=== PATIENT | female | born 1975 | race Caucasian/White ===

== ENCOUNTER 2016-09-06 12:30 | Outpatient (CLI) | payer OTHER | END 2016-09-06 12:31 | disposition home or self-care (01) | DX: M77.31 Calcaneal spur, right foot (principal) ==

== ENCOUNTER 2017-06-06 09:15 | Outpatient (CLI) | payer OTHER | END 2017-06-06 09:16 | disposition home or self-care (01) | LOC: SC 09:15 | PROVIDERS: ATTEND Internal Medicine Pulmonary Disease | DX: G47.30 Sleep apnea, unspecified (principal); G47.8 Other sleep disorders; G47.10 Hypersomnia, unspecified; R06.83 Snoring | CPT/HCPCS: 99203; 99212 ==

== ENCOUNTER 2017-09-18 19:18 | Outpatient (CLI) | payer OTHER | END 2017-09-18 19:19 | disposition home or self-care (01) | LOC: SC 19:18 | PROVIDERS: ATTEND Internal Medicine Pulmonary Disease | DX: G47.33 Obstructive sleep apnea (adult) (pediatric) (principal) | CPT/HCPCS: 95810 ==

== ENCOUNTER 2017-12-04 08:40 | Outpatient (CLI) | payer OTHER | END 2017-12-04 08:41 | disposition home or self-care (01) | LOC: SC 08:40 | PROVIDERS: ATTEND Nurse Practitioner Family | DX: G47.33 Obstructive sleep apnea (adult) (pediatric) (principal) | CPT/HCPCS: 99212; 99214 ==

== ENCOUNTER 2018-02-21 10:32 | Outpatient (CLI) | payer OTHER | END 2018-02-21 10:33 | disposition home or self-care (01) | LOC: SC 10:32 | PROVIDERS: ATTEND Nurse Practitioner Family | DX: G47.33 Obstructive sleep apnea (adult) (pediatric) (principal) | CPT/HCPCS: 99212; 99214 ==

== ENCOUNTER 2018-05-29 11:52 | Outpatient (CLI) | payer OTHER ==
--- NOTE | 2018-05-29 14:06 | MRI Report ---
Reason: PAIN IN RIGHT HIP Procedure Date: 05/29/2018 Accession Number: [id number] / [id number] Procedure: MRI - Hip RT W/O CPT Code: FULL RESULT: EXAM: RIGHT HIP MRI WITHOUT CONTRAST EXAM DATE: 05/29/2018 12:43 PM. CLINICAL HISTORY: PAIN IN RIGHT HIP. COMPARISON: ABDOMEN/PELVIS W/ 08/29/2014 10:02 PM. TECHNIQUE: Multiplanar, multisequence T1-weighted and fluid-sensitive, small hipqt-su-tzuo sequences of the hip and large iqspr-hh-ccgu sequences of the pelvis without contrast. Other: None. FINDINGS: Bones: No fractures or subluxations. No marrow edema or bone lesions. Right/left Hip: No acetabular retroversion. Femoral head/neck offset is within normal limits. No effusion or loose bodies. The articular cartilage is intact. The labrum is unremarkable on this nonarthrographic study. The ligamentum teres is intact. Other Joints: The visualized lumbar spine, sacroiliac joints, symphysis pubis, and contralateral hip are unremarkable. Musculature: No edema or fatty atrophy. The gluteus medius and minimus tendons are normal. The visualized hamstring tendons are normal. The ischiofemoral space is normal. Pelvic Cavity: The visualized viscera are unremarkable. No lymphadenopathy. No free fluid in the pelvis. Other: The visualized sciatic nerves are unremarkable. No bursitis. The subcutaneous tissues are unremarkable. IMPRESSION: No MRI abnormalities in the hip and visualized pelvis. [facility] MUSCULOSKELETAL RADIOLOGY SECTION
== END 2018-05-29 11:53 | disposition home or self-care (01) ==
LOC: DI 11:52
PROVIDERS: ATTEND General Practice
DX: M25.551 Pain in right hip (principal)

== ENCOUNTER 2018-09-24 03:03 | Emergency (ER) | payer OTHER ==
[2018-09-24] MEDS ORDERED: SODIUM CHLORIDE 0.9% 1,000 ML IV ONE ×2 (03:20)
--- NOTE | 2018-09-24 03:22 | ED Physician Documentation ---
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 Patient has been taking ibuprofen and Tylenol at home to help control fever. Patient also admits to nausea without vomiting, but gagging. Patient denies abdominal pain, urinary changes, or stool changes. Patient is currently on her menstrual period.No other improving or worsening factors noted. 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 - Present Medications Home Medications: Ambulatory Orders Medication Instructions Recorded Confirmed Insulin Glargine,Hum.rec.anlog 80 unit SQ HS 01/18/13 07/19/15 [Lantus] metFORMIN [Glucophage] 500 mg PO BID 12/07/14 07/19/15 Aspirin [Aspir-Low] 81 mg ORAL DAILY 07/19/15 07/19/15 Atorvastatin [Lipitor] 10 mg ORAL DAILY 07/19/15 07/19/15 Phenazopyridine [Pyridium] 100 mg PO Q8H PRN #9 tablet 07/19/15 - Allergies Allergies/Adverse Reactions: Allergies Allergy/AdvReac Type Severity Reaction Status Date / Time No Known Drug Allergies Allergy Verified 07/19/15 07:34 - Social History Does the pt smoke?: No Smoking Status: Never smoker Does the pt drink ETOH?: No Does the pt have substance abuse?: No - Immunizations Immunizations are current?: Yes - POLST Patient has POLST: No PD ED PE NORMAL - Vitals Vital signs reviewed: Yes (Tachycardic) - General General: Alert and oriented X 3, No acute distress, Well developed/nourished - HEENT HEENT: Atraumatic, Moist mucous membranes, Pharynx benign - Cardiac Cardiac: No murmur. No: RRR (Tachycardic) - Respiratory Respiratory: No respiratory distress, Clear bilaterally - Abdomen Abdomen: Normal bowel sounds, Soft, Non tender, Non distended - Derm Derm: Normal color, Warm and dry, No rash - Extremities Extremities: No deformity, No tenderness to palpate, No edema - Neuro Neuro: Alert and oriented X 3, No motor deficit, No sensory deficit - Psych Psych: Normal mood, Normal affect Results - Vitals Vitals: Vital Signs - 24 hr 09/24/18 09/24/18 09/24/18 03:08 03:48 04:24 Temperature 37.1 C Heart Rate 153 H 110 H 92 Respiratory 20 17 Rate Blood Pressure 158/91 H O2 Saturation 98 97 09/24/18 04:39 Temperature Heart Rate 85 Respiratory 16 Rate Blood Pressure O2 Saturation 96 Oxygen O2 Source Room air - Labs Labs: Laboratory Tests 09/24/18 09/24/18 09/24/18 03:20 03:20 03:20 WBC 6.7 RBC 5.52 H Hgb 13.2 Hct 41.0 MCV 74.3 L MCH 23.9 L MCHC 32.2 RDW 14.8 Plt Count 246 MPV 7.7 L Neut # (Auto) 5.4 Lymph # (Auto) 0.4 L [place] # (Auto) 0.8 Eos # (Auto) 0.0 Baso # (Auto) 0.0 Absolute Nucleated RBC 0.00 Nucleated RBC % 0.0 Sodium 136 Potassium 3.6 Chloride 100 L Carbon Dioxide 24 Anion Gap 12.0 BUN 12 Creatinine 0.8 Estimated GFR (MDRD) 79 L Glucose 269 H Lactic Acid 1.0 Calcium 9.1 Total Bilirubin 0.7 AST 22 ALT 27 Alkaline Phosphatase 99 Total Protein 7.9 Albumin 4.0 Globulin 3.9 Albumin/Globulin Ratio 1.0 Lipase 24 Urine Color Urine Clarity Urine pH Ur Specific [place] Urine Protein Urine Glucose (UA) Urine Ketones Urine Occult Blood Urine Nitrite Urine Bilirubin Urine Urobilinogen Ur Leukocyte Esterase Urine RBC Urine WBC Ur Squamous Epith Cells Amorphous Sediment Urine Bacteria Ur Microscopic Review Urine Culture Comments Urine HCG, Qual 09/24/18 04:15 WBC RBC Hgb Hct MCV MCH MCHC RDW Plt Count MPV Neut # (Auto) Lymph # (Auto) [place] # (Auto) Eos # (Auto) Baso # (Auto) Absolute Nucleated RBC Nucleated RBC % Sodium Potassium Chloride Carbon Dioxide Anion Gap BUN Creatinine Estimated GFR (MDRD) Glucose Lactic Acid Calcium Total Bilirubin AST ALT Alkaline Phosphatase Total Protein Albumin Globulin Albumin/Globulin Ratio Lipase Urine Color YELLOW Urine Clarity CLEAR Urine pH 5.5 Ur Specific [place] >=1.030 H Urine Protein 30 H Urine Glucose (UA) 500 H Urine Ketones TRACE Urine Occult Blood NEGATIVE Urine Nitrite NEGATIVE Urine Bilirubin NEGATIVE Urine Urobilinogen 0.2 (NORMAL) Ur Leukocyte Esterase NEGATIVE Urine RBC 0-5 Urine WBC 0-3 Ur Squamous Epith Cells NONE SEEN Amorphous Sediment Moderate Urine Bacteria Rare Ur Microscopic Review INDICATED Urine Culture Comments NOT INDICATED Urine HCG, Qual NEGATIVE PD MEDICAL DECISION MAKING - ED course Complexity details: reviewed results, re-evaluated patient, considered differential, d/w patient ED course: Patient presenting with fever, chills, productive cough, generalized body aches over the past several days. Unfortunately, patient has been exposed to multiple sick patients in the hospital and obtained a chest x-ray. However, for pneumonia given constellation of symptoms x-ray returned unremarkable for pneumonia or other acute pathology. Patient started on IV fluids and received Tylenol for headache while obtaining further work-up including blood work, lactate, blood cultures, urinalysis and urine culture. Blood work also returned relatively unremarkable except for elevated blood glucose which is expected given her known diabetes and lack of medications for such earlier today. No significant leukocytosis, electrolyte abnormality, or other acute issue noted. Urinalysis also do not reflect infection or other problems except for presence of glucose which is expected as stated above. Based on physical exam and complaints, have low suspicion for meningitis. Also have lower suspicion for other intra-abdominal pathology such as appendicitis, gallbladder disease, renal disease, small bowel obstruction, diverticulitis as source of symptoms do not feel patient requires emergent CT imaging at this time. Feel that she is likely experiencing a viral illness. Patient is already outside of the treatment window for Tamiflu. Patient's tachycardia resolved with administration of IV fluids. Patient also remained afebrile in the ED. Advised her of results and recommendations including supportive cares, return precautions, and appropriate follow-up. Patient voiced understanding and is comfortable with discharge plan. Departure - Departure Disposition: 01 Home, Self Care Clinical Impression: Viral illness Fever Qualifiers: Fever type: unspecified Qualified Code(s): R50.9 - Fever, unspecified Condition: Good Instructions: ED Viral Syndrome, ED Fever Control Follow-Up: DERICK STEWART MD [Primary Care Provider] - Within 3 Days Comments: Please continue all home medications as previously instructed. Recommend alternating use of ibuprofen/Tylenol for pain and fever control. Recommend hydration with Powerade/Gatorade and advancing diet as tolerated. Please follow-up with primary care physician in the next 2 to 3 days and return to ED sooner if experience worsening symptoms or other concerns.
[2018-09-24 03:36] LABS: BASOPHILS % (AUTO) 0.2 %; EOSINOPHILS % (AUTO) 0.5 %; HGB - HEMOGLOBIN 13.2 g/dL (12.0-16.0); LYMPHOCYTES # (AUTO) 0.4 10^3/uL (1.5-3.5); LYMPHOCYTES % (AUTO) 6.2 %; MEAN CORPUSCULAR HEMOGLOBIN 23.9 pg (27.0-31.0); MEAN CORPUSCULAR HGB CONC 32.2 g/dL (32.0-36.0); MEAN CORPUSCULAR VOLUME 74.3 fL (81.0-99.0); MEAN PLATELET VOLUME 7.7 fL (7.9-10.8); MONOCYTES # (AUTO) 0.8 10^3/uL (0.0-1.0); MONOCYTES % (AUTO) 12.2 %; NEUTROPHILS # (AUTO) 5.4 10^3/uL (1.5-6.6); NEUTROPHILS % (AUTO) 80.9 %; PLT - PLATELET COUNT 246 10^3/uL (130-450); RED BLOOD COUNT 5.52 10^6/uL (4.20-5.40); RED CELL DISTRIBUTION WIDTH 14.8 % (12.0-15.0); WHITE BLOOD COUNT 6.7 x10^3/uL (4.8-10.8)
[2018-09-24 03:48] LABS: BILIRUBIN,TOTAL 0.7 mg/dL (0.2-1.0); CALCIUM 9.1 mg/dL (8.5-10.3); CREATININE 0.8 mg/dL (0.4-1.0); TOTAL PROTEIN 7.9 g/dL (6.7-8.2)
--- NOTE | 2018-09-24 03:48 | XRAY Report ---
Reason: cough, fever, chills Procedure Date: 09/24/2018 Accession Number: [id number] / [id number] Procedure: XR - Chest 2 View X-Ray CPT Code: 76962 FULL RESULT: EXAM: CHEST RADIOGRAPHY EXAM DATE: 09/24/2018 03:31 AM. CLINICAL HISTORY: Cough, fever, chills. COMPARISON: CHEST 2 VIEW PA/LAT 01/18/2013 9:39 AM. TECHNIQUE: 2 views. FINDINGS: Lungs/Pleura: No focal opacities evident. No pleural effusion. No pneumothorax. Normal volumes. Mediastinum: Heart and mediastinal contours are unremarkable. Other: None. IMPRESSION: Stable negative 2-view chest radiography. [facility]
[2018-09-24 04:29] LABS: BILIRUBIN,URINE NEGATIVE (NEGATIVE); GLUCOSE, URINE (UA) 500 mg/dL (NEGATIVE); KETONES,URINE (UA) TRACE mg/dL (NEGATIVE); LEUKOCYTE ESTERASE, URINE NEGATIVE (NEGATIVE); NITRITE,URINE NEGATIVE (NEGATIVE); OCCULT BLOOD,URINE NEGATIVE (NEGATIVE); PH,URINE 5.5 PH (5.0-7.5); PROTEIN,URINE 30 mg/dL (NEGATIVE); UROBILINOGEN,URINE 0.2 (NORMAL) E.U./dL (NORMAL)
[2018-09-24 04:31] LABS: CLARITY,URINE CLEAR (CLEAR); HCG UR QUAL NEGATIVE
[2018-09-24 04:39] LABS: BACTERIA,URINE Rare /HPF (None Seen); RBC,URINE 0-5 /HPF (0-5); SQUAMOUS EPITHELIAL CELL,UR NONE SEEN (<= Few)
[2018-09-24 04:40] LABS: AMORPHOUS SEDIMENT,UR Moderate /LPF
[2018-09-24] MEDS ORDERED: ACETAMINOPHEN 325 MG TABLET PO STA (04:40)
[2018-09-24 05:25] VITALS: BP 117/69
== END 2018-09-24 05:26 | disposition home or self-care (01) ==
LOC: ED 03:03
DX: B34.9 Viral infection, unspecified (principal); R51 Headache; R00.0 Tachycardia, unspecified; E10.65 Type 1 diabetes mellitus with hyperglycemia; Z79.4 Long term (current) use of insulin; Z79.82 Long term (current) use of aspirin
CPT/HCPCS: 36415; 71046; 80053; 81001; 81025; 83605; 83690; 85025; 87040; 96360; 96361; 99283; A9270; 81003; 87086

== ENCOUNTER 2019-02-06 12:22 | Outpatient (CLI) | payer OTHER ==
[2019-02-06] MEDS ORDERED: BUFFERED LIDOCAINE 10 ML SYRINGE ONE (13:13)
[2019-02-06] MEDS ORDERED: IOTHALAMATE MEGLUMINE 50 ML VIAL ONE (13:14)
[2019-02-06] MEDS ORDERED: GADOPENTETATE DIMEGLUMINE 5 ML VIAL IVP ONE (13:14)
--- NOTE | 2019-02-06 16:05 | XRAY Report ---
Reason: PAIN IN RIGHT HIP Procedure Date: 02/06/2019 Accession Number: [id number] / [id number] Procedure: FL - Arthrogram Needle Placement CPT Code: FULL RESULT: EXAM: RIGHT HIP ARTHROGRAPHIC INJECTION WITH FLUOROSCOPIC GUIDANCE EXAM DATE: 02/06/2019 02:56 PM. CLINICAL HISTORY: PAIN IN RIGHT HIP. COMPARISON: None. TECHNIQUE: The risks, benefits, and alternatives of the procedure were discussed with the patient. All questions were answered. Written and verbal consent were obtained. The hip joint was marked under fluoroscopy and prepped and draped in a sterile manner. Local anesthesia was performed with 1% lidocaine. A 22-gauge needle was then inserted into the hip joint. 10 mL of a solution containing 25% 1% lidocaine, 25% iodinated contrast, and a 1:200 dilution of gadolinium contrast in sterile saline was then injected. The needle was removed without immediate complication. Other: None. Fluoroscopy Time: 0.29 minutes. Number of Images: 1. FINDINGS: Bones and Joints: No fracture or subluxation. Injection: Fluoroscopic images demonstrate needle placement and contrast in the hip joint. IMPRESSION: Successful fluoroscopically guided arthrographic injection of the hip. [facility]
--- NOTE | 2019-02-06 17:30 | MRI Report ---
Reason: PAIN IN RIGHT HIP Procedure Date: 02/06/2019 Accession Number: [id number] / [id number] Procedure: MRI - Arthrogram Hip RT CPT Code: FULL RESULT: EXAM: RIGHT HIP MRI ARTHROGRAM WITH CONTRAST EXAM DATE: 02/06/2019 03:03 PM. CLINICAL HISTORY: PAIN IN RIGHT HIP. COMPARISON: Right hip MRI performed 05/29/2018 HIP RT W/O 05/29/2018 12:09 PM. TECHNIQUE: Multiplanar, multisequence T1-weighted and fluid-sensitive, small hdnbr-tv-obuh sequences of the hip and large gsksi-vj-hvbb sequences of the pelvis after an arthrographic injection of dilute gadolinium, dictated under a separate exam. Other: None. FINDINGS: Bones: No fractures or subluxations. No marrow edema or bone lesions. Right Hip: No acetabular retroversion. Femoral head/neck offset is within normal limits. No loose bodies. The articular cartilage is intact. There is a shallow smoothly marginated cleft along the articular surface of the labral-cartilaginous junction involving a short segment of the anterior-superior labrum best seen on the sagittal images on series 701 images 10 and 11. This extends between the labral tissue and cartilage and not deeper between the labral tissue and bone. This is probably a small normal variant sulcus. Partial labral detachment is possible but less likely. The remainder of the labrum is normal. The ligamentum teres is intact. Other Joints: The visualized lumbar spine, sacroiliac joints, symphysis pubis, and contralateral hip are unremarkable. Musculature: No edema or fatty atrophy. There is minimal edema about the distal gluteus medius tendons bilaterally consistent with mild peritendinitis, unchanged. No gluteus medius tendon tear. The gluteus minimus tendons are normal bilaterally. The visualized hamstring tendons are normal. There is trace edema in the left quadratus femoris muscle in the ischiofemoral interval raising the question of minimal left ischiofemoral impingement. This is unchanged. No similar finding is present on the right. Pelvic Cavity: The visualized viscera are unremarkable. No lymphadenopathy. No free fluid in the pelvis. Other: The visualized sciatic nerves are unremarkable. No bursitis. The subcutaneous tissues are unremarkable. IMPRESSION: 1. Tiny shallow cleft at the labral-cartilaginous junction of the anterior-superior aspect of the left hip labrum extends only between the labral tissue and underlying cartilage and not deeper between the labral tissue and bone. This is probably a normal variant sulcus with a short segment of labral detachment possible but less likely. The right hip joint is otherwise normal. No chondral or osseous abnormality. No stigmata of femoroacetabular impingement. 2. Mild edema about the distal gluteus medius tendons bilaterally, slightly more pronounced on the right, suggesting mild peritendinitis. No associated gluteus medius tendon tear. The adjacent gluteus minimus tendons are normal bilaterally. This is unchanged. 3. Minimal edema in the left quadratus femoris muscle in the ischiofemoral interval suggesting minimal ischiofemoral impingement, unchanged. No similar finding is present on the right. [facility]
[2019-02-07] MEDS ORDERED: BUFFERED LIDOCAINE 10 ML SYRINGE IU ONE ×2 (10:28)
[2019-02-07] MEDS ORDERED: GADOPENTETATE DIMEGLUMINE 5 ML VIAL IVP ONE (10:28)
[2019-02-07] MEDS ORDERED: IOTHALAMATE MEGLUMINE 50 ML VIAL IVP ONE (10:28)
== END 2019-02-06 12:23 | disposition home or self-care (01) ==
LOC: DI 12:22
PROVIDERS: ATTEND Internal Medicine
DX: M25.551 Pain in right hip (principal); R60.0 Localized edema
CPT/HCPCS: 27093; 73722; 77002; Q9961

== ENCOUNTER 2019-04-09 10:28 | Outpatient (CLI) | payer OTHER ==
--- NOTE | 2019-04-09 11:58 | Mammography Report ---
Reason: RT BREAST LUMP Procedure Date: 04/09/2019 Accession Number: [id number] / [id number] Procedure: BAL[facility]ER - Diagnostic Dig Bilat CPT Code: Final Report FULL RESULT: EXAM: Diagnostic Dig Bilat DATE: 04/09/2019 11:04 AM CLINICAL HISTORY: Diagnostic examination. Palpable lump. TECHNIQUE: (B) - Bilateral CC and MLO views were obtained. Right spot CC and right spot MLO as well as right ML images are obtained. COMPARISON: 09/19/2017. PARENCHYMAL PATTERN: (F) - The breast(s) demonstrate(s) diffuse fatty replacement. FINDINGS: No abnormality is seen in the area identified the marker. There are no suspicious masses, calcifications, or areas of distortion. IMPRESSION: Negative examination. BI-RADS category 1. RECOMMENDATION: (ANNUAL) - Recommend routine annual screening mammography. BI-RADS CATEGORY: (1) - Negative. STANDARD QUALIFYING STATEMENTS: 1. This examination was not reviewed with the aid of Computer-Aided Detection (CAD). 2. A negative or benign imaging report should not preclude biopsy if clinically suspicious findings are present. 3. Dense breasts may obscure an underlying neoplasm. 4. This examination was reviewed without the aid of 3D breast imaging (tomosynthesis).
== END 2019-04-09 10:29 | disposition home or self-care (01) ==
LOC: DI 10:28
PROVIDERS: ATTEND Internal Medicine
DX: N63.10 Unspecified lump in the right breast, unspecified quadrant (principal)
CPT/HCPCS: 77066

== ENCOUNTER 2019-06-11 08:48 | Outpatient (CLI) | payer OTHER ==
[2019-06-11 10:13] VITALS: BP 130/68
--- NOTE | 2019-06-11 10:13 | SLEEP CARE CONSULTATION ---
Information from patient questionnaire entered by Moriah Ralph. I have reviewed and concur with the information entered by Moriah Ralph. This document represents the service I personally performed and the decisions made by me, Radha Burroughs, RN, MSN, ENGLISH COMPOSITION TEACHER. History of Present Illness Previous diagnosis: Mild (having difficulty getting supplies despite repeated supplies, no return calls ), Obstructive Sleep Apnea-Hypopnea Syndrome AHI: 5.1 Reason for follow up: annual Equipment type: CPAP Equipment obtained from: [facility] Mask style: Full face (Air Touch - however it has broken down and unable to use so using old spare of uncomfortable mask) Mask brand: Resmed Backup mask available: Yes (old spare ) Last cushion change: a couple of years Prior sleep studies: Yes Year and Where: 2017 [facility] CPAP Compliance Data - Data Reviewed with Patient Average duration of nightly device use: 7h 58m Compliance rate %: 95.6 Current pressure setting (cmH2O): 4-7 Average residual AHI: 1.5 Average large leak: 52s Subjective Patient concerns: reports: mask discomfort (from old mask - tightened for mask leaks, prefers Air touch mask ). denies: aerophagia, air blowing in eyes, mask leak noise, condensation in mask/hose, nasal congestion, dry mouth, nose, throat (uses water in reservoir but does not heat plate, has stopped drooling with use of pass over humidity ), epistaxis Observed to snore while using device: Yes Current pressure setting perceived as: comfortable On therapy, patient: reports: sleeping better, more rested overall (with new mask last visit but now always feels tired. 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 Obstructive Sleep Apnea-Hypopnea Syndrome, mild but severe supine, with good treatment compliance and good apnea control. On CPAP therapy, the patient has better sleep quality and is more rested overall but has persistent fatigue addressed below. To reduce snore, I will increase autoCPAP ranged to 7-9cmH20. She is to contact me if the pressure change does not resolve snoring or if uncomfortable. For patient supply concerns. Patient was notified that another DME can be used. I will have my resident service coordinator inform of DME options. A DWO prescription will then be made. Patient advised to contact this office if further supply problems. Patient's apnea severity and rationale for treatment to reduce apnea, improve sleep quality and reduce cardiovascular and cerebrovascular events was reviewed. I also reviewed the benefit of consistent device use of CPAP for diabetes. 2. Chronic fatigue that could be due to trying to switch sleep schedule back and forth from nights to days to meet family needs on days off. She has had work up by PCP to rule out other cause.She obtained the coping with shift work pamphlet at last visit. She implements the sound barriers mentioned to assist her day sleep She was counseled to consider finding a day shift that would allow her to keep the same sleep schedule all days with rationale explained. She was also advised to discuss her fatigue at her upcoming appointment with her endocrinologists. * * Change CPAP pressure to 7-9 cmH2O * Transfer to new DME Notify me if snoring with mask or feeling that the pressure is too much or too little * Attempt to lose weight * Consider new work shift * discuss fatigue with her senior quality methods specialist * Call this office if any problems using CPAP * Return for follow up in 1 year , or sooner if concerns arise I spent 100% of this visit face to face with the patient with greater than 50% of this was spent time counseling the patient and coordination of care.
== END 2019-06-11 08:49 | disposition home or self-care (01) ==
LOC: SC 08:48
PROVIDERS: ATTEND Nurse Practitioner Family
DX: G47.33 Obstructive sleep apnea (adult) (pediatric) (principal); E66.9 Obesity, unspecified; Z68.36 Body mass index [BMI] 36.0-36.9, adult; R53.83 Other fatigue
CPT/HCPCS: 99212; 99214